=== PATIENT | female | born 1935 | race African-American/Black ===

== ENCOUNTER 2018-06-30 06:55 | Day surgery (SDC) | payer MEDICARE, BC ==
--- NOTE | 2018-06-24 15:30 | Pre-Procedure Note/Attestation ---
Pre-Procedure Note/Attestation Complete Prior to Procedure Planned Procedure: right Procedure Narrative: Phaco with IOL, OD Indications for Procedure Pre-Operative Diagnosis: cataract, OD Attestation I attest that I discussed the nature of the procedure; its benefits; risks and complications; and alternatives (and the risks and benefits of such alternatives ), prior to the procedure, with the patient (or the patient's legal access representative). I attest that, if there was a reasonable possibility of needing a blood transfusion, the patient (or the patient's legal access representative) was given the [facility] standardized written summary, pursuant to the Jordin Janae Blood Safety Act ([place] Health and Safety Code # 1645, as amended). I attest that I re-evaluated the patient just prior to the surgery and that there has been no change in the patient's H&P, except as documented below: Zechariah Asencio MD Jun 24, 2018 15:30
--- NOTE | 2018-06-24 15:31 | Opthalmology H&P ---
Ophthalmology H&P H&P Chief Complaint: decreased vision in right eye HPI Vision Affects Ability to: read, focus/use eyes together HPI Narrative blurry vision Exam Visual Acuity: OD 20/400 OS 20/200 Tension: OD 17 OS 19 Eye Exam: normal OU: external exam, palpebral fissure-width, marginal reflex distance, levator function, corneas, anterior chambers; findings: lens - OD ns OS ns, fundus exam - OD; 0.8 OS: 0.8 Assessment/Plan Diagnosis: (1) Nuclear age-related cataract, right eye Treatment Plan: cataract extraction w/ lens implant Goals of Treatment: improvement of vision, enhance quality of life Attestation Attestation The risks and benefits of the surgery as well as alternative procedures were explained to the patient in detail. Zechariah Asencio MD Jun 24, 2018 15:31
[2018-06-26 08:12] LABS: BASOPHILS % (AUTO) 2.9 % (0.0-2.0); EOSINOPHILS % (AUTO) 7.4 % (0.0-3.0); HEMATOCRIT 44.1 % (37.0-47.0); HEMOGLOBIN 14.4 G/DL (12.0-16.0); LYMPHOCYTES % (AUTO) 39.6 % (20.0-45.0); MEAN CORPUSCULAR VOLUME 89 FL (80-99); NEUTROPHILS % (AUTO) 42.1 % (45.0-75.0); PLATELET COUNT 276 K/UL (150-450); RED BLOOD COUNT 4.95 M/UL (4.20-5.40); RED CELL DISTRIBUTION WIDTH 13.3 % (11.6-14.8); WHITE BLOOD COUNT 4.6 K/UL (4.8-10.8)
[2018-06-26 08:30] LABS: INR 1.1 (0.9-1.1)
[2018-06-26 08:34] LABS: ANION GAP 8 mmol/L (5-15); BLOOD UREA NITROGEN 11 mg/dL (7-18); CALCIUM 8.9 MG/DL (8.5-10.1); CARBON DIOXIDE 28 MMOL/L (21-32); CHLORIDE 108 MMOL/L (98-107); CREATININE 0.9 MG/DL (0.55-1.30); POTASSIUM 3.4 MMOL/L (3.5-5.1); SODIUM 144 MMOL/L (136-145)
--- NOTE | 2018-06-27 17:30 | Pre-op HX & Phy Repo 2 SIG ---
DATE OF ADMISSION: 06/30/2018 PRESURGICAL INTERNAL MEDICINE HISTORY AND PHYSICAL: DATE OF EVALUATION: 06/26/2018 REASON FOR EVALUATION: I was asked by Dr. Zechariah Asencio to see this 83-year-old female, who is going for elective surgery on 06/30/2018 at [facility] for right eye nuclear sclerotic cataract. The patient was examined. Chart was reviewed. The patient is an 83-year-old female. Denies history of hypertension. No diabetes. No stroke or seizures. Denies history of heart attack, chest pain, or palpitation. No respiratory problem. No GI bleeding. Occasionally has a heartburn. No renal failure. No anemia. FAMILY HISTORY: Father of old age. Mother from brain aneurysm. ALLERGIES: Not known. MEDICATIONS: Unknown. HABITS: Denies history of smoke or alcohol habits. No street drugs. PHYSICAL EXAMINATION: GENERAL: Alert, elderly female in her 80s. VITAL SIGNS: Blood pressure 137/57, temperature 98.2, pulse 72, respirations 16, O2 saturation 100% on room air. SKIN: Clear and warm. No rashes. No ulcers. HEENT: Eyes, full description per Dr. Zechariah Asencio. Nose clear. No discharge. Ears clear. No discharge. Mouth, clear and moist without dentures. NECK: Supple. No jugular venous distention. Carotids artery +2. Trachea midline. CHEST: No deformity or asymmetry. LUNGS: Clear. No rales or rhonchi. HEART: Regular rate 75 per minute. No ectopy. No murmur. ABDOMEN: Soft, benign. Liver, spleen not enlarged. No palpable mass. No rebound. EXTREMITIES: No edema or varicose veins. GENITOURINARY: No dysuria. No CVA tenderness. NEUROLOGIC: No tremor. No nystagmus. DIAGNOSTIC DATA: Electrocardiogram normal sinus rhythm, 77 per minute, right atrial enlargement, nonspecific ST abnormality. LABORATORY DATA: Obtained and results pending. The patient to be NPO after midnight 06/30/2018. IMPRESSION: 1. Cataract, right eye. 2. GERD. PLAN: Cataract extraction, right eye with intraocular lens implant per Dr. Zechariah Asencio. CONCLUSION: The patient is an 83-year-old female who has a new medical problem, GERD. The patient on no medication. No allergy. The patient's vital signs stable. The patient to be NPO after midnight, Saturday. The patient's condition optimized for surgery. Thank you very much, Dr. Asencio, for privilege to participate in presurgical care of this interesting patient. Cady Morillo M.D. DR: KEV JOB#: [id number] CC:
--- NOTE | 2018-06-29 13:12 | Cardiology Report ---
APPROVED REPORT EKG Measurement Heart [id number] Normal sinus rhythm Right atrial enlargement Nonspecific ST abnormality Abnormal ECG
[2018-06-30] VITALS (7 sets, daily range): BP systolic 135–158; BP diastolic 50–61
[~2018-06-30] VITALS: Ht 162.6 cm; Wt 81.6 kg
[~2018-06-30 06:55] MED LIST: BC ASPIRIN PO
[2018-06-30] MEDS ORDERED: Pred Forte 1% Opth Susp 1ml ONE (07:00)
[2018-06-30] MEDS ORDERED: Pilocarpine 1% Opth 15ml Soln ONE (07:00)
[2018-06-30] MEDS ORDERED: Maxitrol Opth Oint 3.5gm ONE (07:00)
[2018-06-30] MEDS ORDERED: Tetracaine 0.5% Opth 4ml Soln RIGHT EYE ONE (07:00)
[2018-06-30] MEDS ORDERED: Proparacaine 0.5% Opth Soln 15ml RIGHT EYE ONE (07:00)
[2018-06-30] MEDS ORDERED: Akten 3.5% 1ml Btl RIGHT EYE ONE (07:00)
[2018-06-30] MEDS ORDERED: Dexamethasone 4mg/ml vial ONE (07:00)
[2018-06-30] MEDS: Tropicamide 1% Opth 15ml Soln RIGHT EYE SCH ×3 (09:48→10:25)
[2018-06-30] MEDS: Diclofenac Sod 0.1% Op Soln RIGHT EYE SCH ×3 (09:49→10:26)
[2018-06-30] MEDS: Phenylephrine 10% Opth Soln 5ml RIGHT EYE SCH ×3 (09:49→10:25)
[2018-06-30] MEDS: Cyclopentolate 1% Opth Sol 2ml RIGHT EYE SCH ×3 (09:49→10:26)
[2018-06-30] MEDS: Tobramycin Op Soln 0.3% 5ml RIGHT EYE SCH ×3 (09:49→10:26)
[2018-06-30] MEDS ORDERED: BENADRYL25 MG ORAL (10:22)
[2018-06-30] MEDS ORDERED: Vit D PO (10:24)
[2018-06-30] MEDS ORDERED: VIT B PO (10:24)
[2018-06-30] MEDS ORDERED: Povidone-Iodine 5% opth solution ONE ×2 (11:52→12:26)
[2018-06-30] MEDS ORDERED: EPINEPHrine 1mg/1ml Amp ONE (11:52)
[2018-06-30] MEDS ORDERED: Sodium Hyaluronate 14 mg/ml 0.85ml ONE (11:52)
[2018-06-30] MEDS ORDERED: BSS 500ml btl ONE (11:52)
[2018-06-30] MEDS ORDERED: BSS 15ml BTL ONE ×2 (11:52→11:58)
[2018-06-30] MEDS ORDERED: Propofol 200mg/20ml IV ONE (12:00)
[2018-06-30] MEDS ORDERED: LR 1000ml ONE (12:00)
[2018-06-30] MEDS ORDERED: fentaNYL 100 mcg/2 mL IV ONE (12:00)
[2018-06-30] MEDS ORDERED: NS Irrig 1000ml ONE (12:00)
[2018-06-30] MEDS ORDERED: Sterile Water Irrig 1000ml IRRIG ONE (12:00)
[2018-06-30] MEDS ORDERED: LR 1000ml 1,000 ML IVLG SCH (12:12)
--- NOTE | 2018-06-30 12:12 | Anethesia Preoperative Eval ---
Anesthesia Pre-op PMH/ROS General Date of Evaluation: Jun 30, 2018 Time of Evaluation: 11:56 Anesthesiologist: Winifred ASA Score: ASA 2 Mallampati Score Class I : Soft palate, uvula, fauces, pillars visible Class II: Soft palate, uvula, fauces visible Class III: Soft palate, base of uvula visible Class IV: Only hard plate visible Mallampati Classification: Class II Surgeon: Elif Diagnosis: R eye cataract Surgical Procedure: R eye cataract extraction Anesthesia History: none Family History: no anesthesia problems Allergies: Coded Allergies: No Known Allergies (Unverified , 06/26/18) Medications: see eMAR Patient NPO?: Yes Past Medical History Cardiovascular: Reports: HTN; Denies: CAD, AK, valve dz, arrhythmia, other Pulmonary: Denies: asthma, COPD, ARIEL, other Gastrointestinal/Genitourinary: Reports: GERD Neurologic/Psychiatric: Reports: depression/anxiety; Denies: dementia, CVA, TIA, other Endocrine: Reports: hypothyroidism; Denies: DM, steroids, other HEENT: Reports: cataract (L), cataract (R), glaucoma Hematology/Immune: Denies: anemia, DVT, bleeding disorder, other Musculoskeletal/Integumentary: Reports: OA; Denies: RA, DJD, DDD, edema, other PMH Narrative: as above PSxH Narrative: see chart Anesthesia Pre-op Phys. Exam Physician Exam Last Vital Signs Date Time Temp Pulse Resp B/P (MAP) Pulse Ox O2 Delivery O2 Flow Rate FiO2 06/30/18 10:04 Room Air 06/30/18 09:40 97.1 75 18 146/55 98 Constitutional: NAD Neurologic: CN 2-12 intact Cardiovascular: RRR, no M/R/G Respiratory: CTA Gastrointestinal: S/NT/ND Airway Exam Mallampati Score: Class II MO: limited Neck: stiff ROM: limited Teeth: missing Dentures: no upper, no lower Anesthesia Pre-op A/P Labs see chart Studies Pre-op Studies: EKG - SR Risk Assessment & Plan Assessment: ASA 2 Plan: MAC Status Change Before Surgery: No Pre-Antibiotics Drug: none Christopher Vitale MD Jun 30, 2018 12:12
[2018-06-30] MEDS ORDERED: fentaNYL 100 mcg/2 mL IV PRN (12:15)
--- NOTE | 2018-06-30 12:36 | Immediate Post-Op Evaluation ---
Immediate Post-Op Evalulation Immediate Post-Op Evalulation Procedure: R ey cataract extraction with IOL Date of Evaluation: Jun 30, 2018 Time of Evaluation: 12:35 IV Fluids: 300 Blood Products: none Estimated Blood Loss: none Urinary Output: none Blood Pressure Systolic: 148 Blood Pressure Diastolic: 62 Pulse Rate: 68 Respiratory Rate: 20 O2 Sat by Pulse Oximetry: 98 Temperature (Fahrenheit): 97.6 Pain Score (1-10): 1 Nausea: No Vomiting: No Complications none Patient Status: awake, patent, none Hydration Status: adequate Christopher Vitale MD Jun 30, 2018 12:36
--- NOTE | 2018-06-30 13:09 | 48 Hour Post Anesthesia Eval ---
Post Anesthesia Evaluation Procedure: R ey cataract extraction with IOL Date of Evaluation: Jun 30, 2018 Time of Evaluation: 13:08 Blood Pressure Systolic: 128 0: 74 Pulse Rate: 56 Respiratory Rate: 20 Temperature (Fahrenheit): 97.6 O2 Sat by Pulse Oximetry: 98 Airway: patent Nausea: No Vomiting: No Pain Intensity: 1 Hydration Status: adequate Cardiopulmonary Status: stable Mental Status/LOC: patient returned to baseline Follow-up Care/Observations: n/a Post-Anesthesia Complications: none Follow-up care needed: ready to discharge Christopher Vitale MD Jun 30, 2018 13:09
--- NOTE | 2018-07-01 14:01 | Brief Operative Note ---
Immediate Post Operative Note Operative Note Chief Complaint: blurry vision Pre-op Diagnosis: cataract, OD Procedure: phaco with lens implant, OD Post-op Diagnosis: Pseudophakia Post-op Diagnosis: same as pre-op Findings: consistent w/pre-op dx studies Surgeon: Elif Anesthesia: MAC Specimen: none Complications: none Condition: stable Fluids: LR Estimated Blood Loss: none Drains: none Implant(s) used?: Yes Zechariah Asencio MD Jul 01, 2018 14:01
--- NOTE | 2018-07-01 14:02 | Operative Note - PDOC ---
Operative Note Operative Note Date of Operation/Procedure: Jun 30, 2018 Chief Complaint: blurry vision Pre-op Diagnosis: cataract, OD Procedure: phaco with lens implant, OD Post-op Diagnosis: Pseudophakia Post-op Diagnosis: same as pre-op Operative Findings: consistent w/pre-op dx studies Surgeon: Elif Anesthesia: MAC Specimen: none Complications: none Condition: stable Fluids: LR Estimated Blood Loss: none Drains: none Implant(s) used?: Yes Indications for Procedure cataract Description of Procedure This patient has been complaining visually significant cataract in the affected eye with the best corrected visual acuity under moderate glare conditions worse. The patient complains of difficulties with glare in performing activities of daily living and wants to manage personal affairs with comfort and accuracy and see well enough to move with safety at home and outdoors. The risks, benefits and alternatives of the procedure were discussed with the patient in the office prior to scheduling surgery. All questions from the patient were answered after the surgical procedure was explained in detail. The risks of the procedure as explained to the patient include, but are not limited to, pain, infection, bleeding, loss of vision, retinal detachment, need for further surgery, loss of lens nucleus, double vision, etc. Alternative procedures were discussed which include, to do nothing or seek a second opinion. Informed consent for this procedure was obtained from the patient. The patient was referred to a primary care physician for a cardiopulmonary clearance prior to surgery, after proper evaluation was done patient was properly scheduled for outpatient surgery. The patient was brought to the operating room where the anesthesiologist established I.V. lines and cardiac monitoring leads. Mild intravenous sedation was administered. The patient was then prepared with a 5% solution of povidone -iodine to the conjunctival fornix and lashes, and a 5% solution of povidone- iodine to the lids and periorbital skin. The patient was then draped in the usual sterile fashion. A lid speculum was then placed in the operative eye. A keratome blade was then used to create a biplanar incision into the anterior chamber. Viscoelastics was then instilled into the anterior chamber. A 3-mm single pass clear corneal incision was made just anterior to the vascular arcade of the temporal limbus using a keratome. Anterior capsulorrhexis was created. The nucleus was hydrodissected and hydrodelineated, and was freely movable in the capsular bag. The nucleus was then phacoemulsified. Following the deep groove formation, the lens was split bimanually and epicortex removed under vacuum burst-mode phacoemulsification. Peripheral cortex was removed with the irrigation and aspiration handpiece. The capsular bag was expanded with viscoelastic. The intraocular lens was then inspected for right power and size and thought to be satisfactory. The implant was inspected under the microscope and found to be free of defects. The implant was inserted into the cartridge system under viscoelastic and placed in the capsular bag. The trailing haptic was positioned with the cartridge system. Viscoelastics was removed from the anterior chamber using the irrigation and aspiration unit. The corneal wound was then tested for leaks and none were found. The lid speculum were then removed. Sponge and needle counts were correct. An eye patch and shield were placed over the operative eye. The patient was taken to the recovery room in stable condition. There were no complications. The patient tolerated the procedure well. The patient was then transferred to the ambulatory surgery unit in stable and satisfactory condition , was given detailed written instructions and asked to follow up in the office the next day. Zechariah Asencio MD Jul 01, 2018 14:02
== END 2018-06-30 13:20 | disposition home or self-care (01) ==
LOC: SUR 06:55 → EDSEX 13:30
DX: H25.11 Age-related nuclear cataract, right eye (principal); K21.9 Gastro-esophageal reflux disease without esophagitis; I10 Essential (primary) hypertension; E03.9 Hypothyroidism, unspecified; M19.90 Unspecified osteoarthritis, unspecified site; F32.9 Major depressive disorder, single episode, unspecified; F41.9 Anxiety disorder, unspecified
CPT/HCPCS: 36415; 66984; 80048; 85025; 85610; 85730; 93005; J0171; J1100; J2704; J3010; J3370; V2632; 94003; 94150